=== PATIENT | male | born 1950 | race Caucasian/White ===

== ENCOUNTER 2018-09-12 05:15 | Inpatient (IN) | payer MEDICARE, BC, OTHER ==
[2018-09-08 14:11] LABS: BASOPHILS % (AUTO) 0.4 % (0-1); EOSINOPHILS # (AUTO) 0.5 X10'3 (0-0.9); EOSINOPHILS % (AUTO) 5.1 % (0-6); LYMPHOCYTES # (AUTO) 2.9 X10'3 (1.1-4.8); LYMPHOCYTES % (AUTO) 31.1 % (21-51); MEAN CORPUSCULAR HEMOGLOBIN 31.4 PG (27.0-31.0); MEAN CORPUSCULAR HGB CONC 33.1 % (33.0-36.5); MEAN PLATELET VOLUME 8.6 FL (7.4-10.4); MONOCYTES # (AUTO) 0.7 X10'3 (0-0.9); MONOCYTES % (AUTO) 7.6 % (2-12); NEUTROPHILS # (AUTO) 5.2 X10'3 (1.8-7.7); NEUTROPHILS % (AUTO) 55.8 % (42-75); PRE OP HEMATOCRIT 43.8 % (42.0-52.0); PRE OP HEMOGLOBIN 14.5 g/dL (14.0-17.9); PRE OP PLATELET COUNT 212 X10'3 (140-440); RED CELL DISTRIBUTION WIDTH 14.7 % (11.5-14.5)
[2018-09-08 14:20] LABS: ALBUMIN 3.8 G/DL (3.4-5.0); ALBUMIN/GLOBULIN RATIO 1.1 (1.1-1.5); ALKALINE PHOSPHATASE 80 IU/L (46-116); BLOOD UREA NITROGEN 21 MG/DL (7-18); BUN/CREATININE RATIO 20.8 (5.4-32.0); CALCIUM 9.8 MG/DL (8.5-10.1); CHLORIDE 102 MMOL/L (99-107); CREATININE 1.01 MG/DL (0.60-1.10); PRE OP ALT 40 U/L (30-65); PRE OP ANION GAP 8 (8-16); PRE OP AST 22 U/L (10-37); PRE OP BILIRUB, TOTAL 0.5 MG/DL (0.0-1.0); PRE OP GLUCOSE 95 MG/DL (70-104); PRE OP SODIUM 140 MMOL/L (135-145); TOTAL PROTEIN 7.2 G/DL (6.4-8.2); eGFR 73 ML/MIN
[2018-09-08 14:21] LABS: PRE OP POTASSIUM 3.2 MMOL/L (3.4-5.1)
[2018-09-08 14:22] LABS: CLARITY,URINE SLIGHTLY CLOUDY (Clear); COLOR,URINE YELLOW (Yellow); GLUCOSE, URINE NEGATIVE (Neg); KETONES,URINE NEGATIVE (Neg); LEUKOCYTE ESTERASE ,URINE NEGATIVE (Neg); NITRITES, URINE NEGATIVE (Neg); OCCULT BLOOD,URINE SMALL (Neg); PH,URINE 5.5 (4.8-8.0); PROTEIN,URINE NEGATIVE (Neg); UROBILINOGEN,URINE 0.2 E.U/dL (0.2-1.0)
[2018-09-08 14:24] LABS: UA COLLECTION TYPE CLN CATCH MIDSTREAM
[2018-09-08 14:48] LABS: WBC,URINE 0-4 /HPF (0-4)
[2018-09-08 14:49] LABS: BACTERIA,URINE FEW /HPF (Neg); MUCUS STRANDS FEW /LPF (Neg); SQUAMOUS EPITHELIAL CELL,UR FEW /LPF (FEW)
[2018-09-12] VITALS (18 sets, daily range): BP systolic 102–136; BP diastolic 57–87
[~2018-09-12] VITALS: Ht 177.8 cm; Wt 100.9 kg
[~2018-09-12 05:15] MED LIST: ALLO100T PO; CARV-50 PO; CHOL400T32 PO; HYDR-3136 PO; OLME1TAB24 PO; ringers solution, lacted 1,000 ML IV SCH
[2018-09-12] MEDS ORDERED: cefazolin/dext.iso 2gm/50ml 50 ML IV ONE (05:30)
[2018-09-12] MEDS ORDERED: albuterol 2.5 MG/3 ML nebule NEB ONE (05:30)
[2018-09-12] MEDS ORDERED: gabapentin 300mg capsule PO ONE (05:30)
[2018-09-12] MEDS ORDERED: tranexamic acid inj. 1,500 MG in normal saline 100ml IV soln 85 ML IV ONE (05:30)
[2018-09-12] MEDS ORDERED: celeCOXIB 100mg capsule PO ONE (05:30)
[2018-09-12] MEDS ORDERED: cefazolin/dext.iso 2gm/100 ML IV ONE (05:30)
[2018-09-12] MEDS ORDERED: metoclopramide 5 mg/ml inj IV ONE (05:30)
[2018-09-12] MEDS ORDERED: famotidine 20mg tablet PO ONE (05:30)
[2018-09-12] MEDS ORDERED: DOCUMENT DATE & TIME OF BETA-BLOCKER PO ONE (05:30)
[2018-09-12] MEDS ORDERED: acetaminophen 325mg tablet PO ONE (05:30)
[2018-09-12] MEDS ORDERED: oxyCODONE SR 10mg (sust. release) tab PO ONE (05:30)
[2018-09-12] MEDS ORDERED: LIDOcaine 1% (10mg/ml) 2ml vial ONE (06:07)
[2018-09-12] MEDS ORDERED: ROPIVAcaine 0.5% (5mg/ml) 30ml vial ONE ×2 (06:36→07:16)
[2018-09-12] MEDS ORDERED: bacitracin inj 150,000 UNIT in sodium chloride irrig. sol 3,000 ML IR ONE (07:00)
[2018-09-12 07:10] LABS: ISTAT HGB 14.3 g/dl (14.0-18.0); ISTAT IONIZED CALCIUM 1.31 mmol/L (1.03-1.32); ISTAT K 3.6 mmol/L (3.5-5.1)
[2018-09-12] MEDS ORDERED: cloNIDine hcl/PF 100mcg/ml inj ONE (07:11)
[2018-09-12] MEDS ORDERED: MIDAZolam 1mg/ml 10ml vial ONE (07:13)
[2018-09-12] MEDS ORDERED: fentaNYL/PF 50MCG/1 ML 2ML syringe ONE (07:13)
[2018-09-12] MEDS ORDERED: BUPIVAcaine/dex-water/PF 7.5 mg/ml 2ml ampul ONE (07:14)
[2018-09-12] MEDS ORDERED: dexamethasone sod phosphate 4mg/ml inj. ONE (07:16)
[2018-09-12] MEDS ORDERED: ringers solution, lacted 1,000 ML IV SCH (08:40)
[2018-09-12] MEDS ORDERED: meperidine/PF 25mg/ml syringe IV PRN ×3 (08:40)
[2018-09-12] MEDS ORDERED: proCHLORperazine 10 MG/2 ml inj IV PRN (08:40)
[2018-09-12] MEDS ORDERED: morphine 4 MG/ML inj SYRINge IV PRN ×2 (08:40)
[2018-09-12] MEDS ORDERED: ondansetron/PF 4mg/2ml inj IV PRN ×2 (08:40→10:05)
[2018-09-12] MEDS ORDERED: magnesium hydroxide 30ml (MOM) UD suspension PO PRN (10:05)
[2018-09-12] MEDS ORDERED: diphenhydrAMINE 25mg capsule PO PRN ×2 (10:05)
[2018-09-12] MEDS ORDERED: HYDROmorphone 1 mg/ml syringe IV PRN (10:05)
[2018-09-12] MEDS ORDERED: bisacodyl 10mg suppository rectal RC PRN (10:05)
[2018-09-12] MEDS ORDERED: acetaminophen 325mg tablet PO PRN (10:05)
[2018-09-12] MEDS: gabapentin 300mg capsule PO SCH ×2 (14:03→20:47)
[2018-09-12] MEDS: potassium cl 20mEq in 1/2 NS 1,000 ML IV SCH ×2 (14:03→20:51)
[2018-09-12] MEDS: oxyCODONE/APAP 10/325mg tablet PO PRN ×3 (14:03→23:07)
[2018-09-12] MEDS: ceFAZolin 1GM/D5W- ADD-VANTAGE 50 ML IV SCH ×2 (16:00→23:52)
[2018-09-12] MEDS: hydrALAZINE 25 MG tablet PO SCH (20:00)
[2018-09-12] MEDS: carvedilol 6.25mg tablet PO SCH (20:00)
[2018-09-12] MEDS: ascorbic acid 500mg tablet PO SCH (20:47)
[2018-09-12] MEDS: HYDROchlorothiazide 12.5mg capsule PO SCH (20:48)
[2018-09-12] MEDS: sennosides 8.6mg tablet PO SCH (20:51)
[2018-09-12] MEDS: nicotine 14mg patch - 24hr TD SCH (20:54)
[2018-09-13 02:00] VITALS: BP 138/79
[2018-09-13] MEDS: potassium cl 20mEq in 1/2 NS 1,000 ML IV SCH ×3 (02:01→18:01)
[2018-09-13] MEDS: oxyCODONE/APAP 10/325mg tablet PO PRN ×5 (04:29→23:45)
[2018-09-13 07:10] LABS: BASOPHILS % (AUTO) 0.1 % (0-1); EOSINOPHILS # (AUTO) 0.2 X10'3 (0-0.9); EOSINOPHILS % (AUTO) 1.5 % (0-6); HEMATOCRIT 39.6 % (42.0-52.0); HEMOGLOBIN 13.4 g/dl (14.0-17.9); LYMPHOCYTES # (AUTO) 1.6 X10'3 (1.1-4.8); LYMPHOCYTES % (AUTO) 13.1 % (21-51); MEAN CORPUSCULAR HEMOGLOBIN 31.9 PG (27.0-31.0); MEAN CORPUSCULAR HGB CONC 33.8 % (33.0-36.5); MEAN CORPUSCULAR VOLUME 94.2 FL (78-98); MEAN PLATELET VOLUME 8.8 FL (7.4-10.4); MONOCYTES # (AUTO) 0.8 X10'3 (0-0.9); MONOCYTES % (AUTO) 6.2 % (2-12); NEUTROPHILS # (AUTO) 9.9 X10'3 (1.8-7.7); NEUTROPHILS % (AUTO) 79.1 % (42-75); PLATELET COUNT 179 X10'3 (140-440); RED CELL DISTRIBUTION WIDTH 14.3 % (11.5-14.5); WHITE BLOOD COUNT 12.5 X10'3 (4.5-11.0)
[2018-09-13 07:16] LABS: ANION GAP 7 (8-16); CHLORIDE 103 MMOL/L (99-107); POTASSIUM 3.6 MMOL/L (3.5-5.1); SODIUM 137 MMOL/L (135-145); TOTAL CARBON DIOXIDE 27.3 MMOL/L (24-32)
[2018-09-13 07:20] LABS: PROTHROMBIN TIME 10.4 SECONDS (9.0-12.0)
[2018-09-13] MEDS: hydrALAZINE 25 MG tablet PO SCH ×2 (07:37→22:20)
[2018-09-13] MEDS: carvedilol 6.25mg tablet PO SCH ×2 (07:37→20:33)
[2018-09-13] MEDS: losartan 50mg tablet PO SCH ×2 (07:49→20:33)
[2018-09-13] MEDS: multivitamins, therapeutics tablet PO SCH (07:49)
[2018-09-13] MEDS: HYDROchlorothiazide 12.5mg capsule PO SCH ×2 (07:49→20:33)
[2018-09-13] MEDS: gabapentin 300mg capsule PO SCH ×3 (07:50→22:20)
[2018-09-13] MEDS: ascorbic acid 500mg tablet PO SCH ×2 (08:00→20:33)
[2018-09-13] MEDS ORDERED: allopurinol 100mg tablet PO SCH (08:00)
[2018-09-13 08:02] VITALS: BP 117/79
[2018-09-13 08:34] LABS: ALBUMIN 3.2 G/DL (3.4-5.0); BLOOD UREA NITROGEN 17 MG/DL (7-18); BUN/CREATININE RATIO 15.9 (5.4-32.0); CALCIUM 9.2 MG/DL (8.5-10.1); CREATININE 1.07 MG/DL (0.60-1.10); GLUCOSE 132 MG/DL (70-104); eGFR 69 ML/MIN
[2018-09-13] MEDS ORDERED: warfarin 10mg tablet PO ONE (10:00)
[2018-09-13 10:25] VITALS: BP 142/73
[2018-09-13 10:42] VITALS: BP 119/72
[2018-09-13 18:30] VITALS: BP 126/80
[2018-09-13] MEDS: sennosides 8.6mg tablet PO SCH (20:33)
[2018-09-13] MEDS: celeCOXIB 100mg capsule PO SCH (20:34)
[2018-09-13] MEDS: nicotine 14mg patch - 24hr TD SCH (20:36)
[2018-09-13 22:00] VITALS: BP 123/68
[2018-09-14] MEDS: potassium cl 20mEq in 1/2 NS 1,000 ML IV SCH (02:01)
[2018-09-14] MEDS: oxyCODONE/APAP 10/325mg tablet PO PRN ×2 (04:47→17:10)
[2018-09-14 06:00] VITALS: BP 129/71
[2018-09-14 06:11] LABS: PROTHROMBIN TIME 10.3 SECONDS (9.0-12.0)
[2018-09-14 06:23] LABS: BASOPHILS % (AUTO) 0.4 % (0-1); EOSINOPHILS % (AUTO) 3.1 % (0-6); HEMATOCRIT 37.5 % (42.0-52.0); HEMOGLOBIN 13.1 g/dl (14.0-17.9); LYMPHOCYTES % (AUTO) 26.1 % (21-51); MEAN CORPUSCULAR HEMOGLOBIN 32.7 PG (27.0-31.0); MEAN CORPUSCULAR VOLUME 93.5 FL (78-98); MEAN PLATELET VOLUME 8.8 FL (7.4-10.4); MONOCYTES # (AUTO) 1.2 X10'3 (0-0.9); MONOCYTES % (AUTO) 10 % (2-12); NEUTROPHILS % (AUTO) 60.4 % (42-75); PLATELET COUNT 178 X10'3 (140-440); RED BLOOD COUNT 4.01 X10'6 (4.70-6.10); RED CELL DISTRIBUTION WIDTH 13.6 % (11.5-14.5); WHITE BLOOD COUNT 11.6 X10'3 (4.5-11.0)
[2018-09-14 06:24] LABS: EOSINOPHILS # (AUTO) 0.4 X10'3 (0-0.9)
[2018-09-14] MEDS: losartan 50mg tablet PO SCH ×2 (08:00→20:04)
[2018-09-14] MEDS: carvedilol 6.25mg tablet PO SCH ×2 (08:00→20:04)
[2018-09-14] MEDS: HYDROchlorothiazide 12.5mg capsule PO SCH ×2 (08:00→20:04)
[2018-09-14] MEDS: hydrALAZINE 25 MG tablet PO SCH ×2 (08:00→20:04)
[2018-09-14] MEDS: allopurinol 300 MG tablet PO SCH (08:22)
[2018-09-14] MEDS: gabapentin 300mg capsule PO SCH ×3 (08:22→20:04)
[2018-09-14] MEDS: celeCOXIB 100mg capsule PO SCH ×2 (08:23→20:04)
[2018-09-14] MEDS: multivitamins, therapeutics tablet PO SCH (08:23)
[2018-09-14] MEDS: ascorbic acid 500mg tablet PO SCH ×2 (08:23→20:04)
[2018-09-14 10:00] VITALS: BP 106/58
[2018-09-14] MEDS ORDERED: warfarin 10mg tablet PO ONE (10:00)
[2018-09-14] MEDS ORDERED: acetaminophen 325mg tablet PO PRN (10:05)
[2018-09-14 18:17] VITALS: BP 113/81
[2018-09-14] MEDS: sennosides 8.6mg tablet PO SCH (20:05)
[2018-09-14] MEDS: nicotine 14mg patch - 24hr TD SCH (20:12)
[2018-09-14 22:00] VITALS: BP 118/78
[2018-09-15] MEDS: oxyCODONE/APAP 10/325mg tablet PO PRN ×4 (05:15→11:25)
[2018-09-15 06:00] VITALS: BP 123/77
[2018-09-15 06:23] LABS: BASOPHILS % (AUTO) 0.5 % (0-1); EOSINOPHILS # (AUTO) 0.3 X10'3 (0-0.9); EOSINOPHILS % (AUTO) 3.5 % (0-6); HEMATOCRIT 35.6 % (42.0-52.0); HEMOGLOBIN 12.2 g/dl (14.0-17.9); LYMPHOCYTES % (AUTO) 20.7 % (21-51); MEAN CORPUSCULAR HEMOGLOBIN 32.3 PG (27.0-31.0); MEAN CORPUSCULAR HGB CONC 34.3 % (33.0-36.5); MEAN PLATELET VOLUME 8.1 FL (7.4-10.4); MONOCYTES # (AUTO) 1.1 X10'3 (0-0.9); MONOCYTES % (AUTO) 11.4 % (2-12); NEUTROPHILS # (AUTO) 6.1 X10'3 (1.8-7.7); NEUTROPHILS % (AUTO) 63.9 % (42-75); PLATELET COUNT 177 X10'3 (140-440); RED BLOOD COUNT 3.78 X10'6 (4.70-6.10); RED CELL DISTRIBUTION WIDTH 14.8 % (11.5-14.5); WHITE BLOOD COUNT 9.6 X10'3 (4.5-11.0)
[2018-09-15 06:35] LABS: INR 1.4 INR
[2018-09-15] MEDS ORDERED: ASPI-1264 PO (06:44)
[2018-09-15] MEDS: gabapentin 300mg capsule PO SCH (08:00)
[2018-09-15] MEDS: celeCOXIB 100mg capsule PO SCH (08:00)
[2018-09-15] MEDS: losartan 50mg tablet PO SCH (08:00)
[2018-09-15] MEDS: hydrALAZINE 25 MG tablet PO SCH (08:00)
[2018-09-15] MEDS: ascorbic acid 500mg tablet PO SCH (08:00)
[2018-09-15] MEDS: allopurinol 300 MG tablet PO SCH (08:00)
[2018-09-15] MEDS: multivitamins, therapeutics tablet PO SCH (08:00)
[2018-09-15] MEDS: HYDROchlorothiazide 12.5mg capsule PO SCH (08:00)
[2018-09-15] MEDS: carvedilol 6.25mg tablet PO SCH (08:00)
[2018-09-15 10:00] VITALS: BP 96/56
[2018-09-15] MEDS ORDERED: warfarin 5mg tablet PO ONE (10:00)
[2018-09-15 14:00] VITALS: BP 102/52
== END 2018-09-15 13:01 | disposition home health service (06) | DRG 470 ==
LOC: PAS IN 05:15 → EDSTATUS 07:30 → ORTHO 4S 11:20
PROVIDERS: ADMIT Specialist; ATTEND Specialist
PROC: 3E0T3BZ Introduction of Anesthetic Agent into Peripheral Nerves and Plexi, Percutaneous Approach (ICD-10-PCS; 2018-09-12)
PROC: 5A09357 Assistance with Respiratory Ventilation, Less than 24 Consecutive Hours, Continuous Positive Airway Pressure (ICD-10-PCS; 2018-09-12)
PROC: 0SRD0J9 Replacement of Left Knee Joint with Synthetic Substitute, Cemented, Open Approach (ICD-10-PCS; principal; 2018-09-12 07:21)
DX: M17.12 Unilateral primary osteoarthritis, left knee (principal); D62 Acute posthemorrhagic anemia; F17.210 Nicotine dependence, cigarettes, uncomplicated; F43.10 Post-traumatic stress disorder, unspecified; E66.9 Obesity, unspecified; G47.30 Sleep apnea, unspecified; K59.00 Constipation, unspecified; I10 Essential (primary) hypertension; M10.9 Gout, unspecified; Z79.82 Long term (current) use of aspirin; Z79.899 Other long term (current) drug therapy; Z88.8 Allergy status to other drugs, medicaments and biological substances; Z87.442 Personal history of urinary calculi; Z68.31 Body mass index [BMI] 31.0-31.9, adult
CPT/HCPCS: 36415; 73560; 80047; 80048; 80053; 81001; 85025; 85610; 85730; 87070; 97110; 97116; 97162; 97530; A6449; A6455; A7000; C1713; C1758; C1776; G0378; J0690; J0735; J1100; J1170; J2250; J2795; J3010; J3490; J7030; J7120

== ENCOUNTER 2022-01-20 14:27 | Emergency (ER) | payer OTHER, MEDICARE, BC ==
[~2022-01-20] VITALS: Ht 175.3 cm; Wt 100.0 kg
[~2022-01-20 14:27] MED LIST changes: +EZET10TA81 PO; -OLME1TAB24 PO; +OLME20TA23 PO; -ringers solution, lacted 1,000 ML IV SCH
[2022-01-20 15:26] LABS: BASOPHILS # (AUTO) 0.1 X10'3 (0-0.2); BASOPHILS % (AUTO) 0.9 % (0-1); EOSINOPHILS # (AUTO) 0.3 X10'3 (0-0.9); EOSINOPHILS % (AUTO) 3.6 % (0-6); HEMATOCRIT 46.7 % (42.0-52.0); HEMOGLOBIN 15.6 g/dl (14.0-17.9); LYMPHOCYTES # (AUTO) 2.4 X10'3 (1.1-4.8); LYMPHOCYTES % (AUTO) 28.9 % (21-51); MEAN CORPUSCULAR HEMOGLOBIN 31.9 PG (27.0-31.0); MEAN CORPUSCULAR HGB CONC 33.4 g/dL (33.0-36.5); MEAN CORPUSCULAR VOLUME 95.5 FL (78-98); MEAN PLATELET VOLUME 7.7 FL (7.4-10.4); MONOCYTES # (AUTO) 0.5 X10'3 (0-0.9); MONOCYTES % (AUTO) 6.3 % (2-12); NEUTROPHILS # (AUTO) 4.9 X10'3 (1.8-7.7); NEUTROPHILS % (AUTO) 60.3 % (42-75); PLATELET COUNT 219 X10'3 (140-440); RED CELL DISTRIBUTION WIDTH 15.7 % (11.5-14.5); WHITE BLOOD COUNT 8.2 X10'3 (4.5-11.0)
[2022-01-20 15:44] LABS: ALANINE AMINOTRANSFERASE 31 U/L (12-78); ALBUMIN 3.9 G/DL (3.4-5.0); ALBUMIN/GLOBULIN RATIO 1.1 (1.1-1.5); ALKALINE PHOSPHATASE 81 IU/L (46-116); ANION GAP 8 (8-16); ASPARTATE AMINO TRANSFERASE 19 U/L (10-37); BILIRUBIN,TOTAL 0.8 MG/DL (0.1-1.0); BLOOD UREA NITROGEN 19 MG/DL (7-18); BUN/CREATININE RATIO 17.8 (5.4-32.0); CALCIUM 9.4 MG/DL (8.5-10.1); CHLORIDE 106 MMOL/L (99-107); CREATININE 1.07 MG/DL (0.60-1.10); GLUCOSE 78 MG/DL (70-104); POTASSIUM 4.4 MMOL/L (3.5-5.1); SODIUM 142 MMOL/L (135-145); TOTAL CARBON DIOXIDE 28.3 MMOL/L (24-32); TOTAL PROTEIN 7.4 G/DL (6.4-8.2); eGFR 68 ML/MIN
[2022-01-20 18:50] VITALS: BP 177/119
== END 2022-01-20 18:58 | disposition home or self-care (01) ==
LOC: ER 14:28
DX: R07.89 Other chest pain (principal); R06.02 Shortness of breath; I25.10 Atherosclerotic heart disease of native coronary artery without angina pectoris; I10 Essential (primary) hypertension; M19.90 Unspecified osteoarthritis, unspecified site; Z86.73 Personal history of transient ischemic attack (TIA), and cerebral infarction without residual deficits; Z87.442 Personal history of urinary calculi; Z98.890 Other specified postprocedural states; Z88.6 Allergy status to analgesic agent; Z88.2 Allergy status to sulfonamides; Z88.8 Allergy status to other drugs, medicaments and biological substances; Z79.899 Other long term (current) drug therapy
CPT/HCPCS: 36415; 71045; 80053; 83880; 84484; 85025; 93005; 99285